=== PATIENT | male | born 1980 | race Caucasian/White ===

== ENCOUNTER 2019-03-16 11:53 | Emergency (ER) | payer MEDICARE, MEDICAID ==
[~2019-03-16] VITALS: Ht 170.2 cm; Wt 69.5 kg
[~2019-03-16 11:53] MED LIST: CIPR-230 PO
[2019-03-16 12:15] VITALS: BP 112/60
[2019-03-16] MEDS ORDERED: LIDOcaine 1% w/epiNEPHrine 1:200,000 30ml vial IM ONE (12:30)
--- NOTE | 2019-03-16 12:53 | NUR ---
LABELED AND SENT BLUE CULTURE OBTAINED BY RYAN CABALLERO FROM NECK ABSCESS, AUXILARY BROUGHT DOWN TO LAB.
[2019-03-16] MEDS ORDERED: ALBU8.5H8 IH (12:54)
[2019-03-16] MEDS ORDERED: SULF1TAB49 PO (12:54)
== END 2019-03-16 13:06 | disposition home or self-care (01) ==
LOC: ER 11:53
DX: L02.11 Cutaneous abscess of neck (principal); J45.909 Unspecified asthma, uncomplicated; F12.90 Cannabis use, unspecified, uncomplicated; Z98.890 Other specified postprocedural states; Z56.0 Unemployment, unspecified; Z79.2 Long term (current) use of antibiotics
CPT/HCPCS: 10060; 87070; 99283; J3490; 87077; 87186

== ENCOUNTER 2022-05-31 09:21 | Emergency (ER) | payer MEDICARE, MEDICAID ==
[~2022-05-31] VITALS: Ht 170.2 cm; Wt 71.8 kg
[~2022-05-31 09:21] MED LIST changes: +ALBU8.5H17 IH; +CIPR-202 PO; -CIPR-230 PO
[2022-05-31 10:01] LABS: BASOPHILS % (AUTO) 0.4 % (0-1); EOSINOPHILS # (AUTO) 0.1 X10'3 (0-0.9); EOSINOPHILS % (AUTO) 1.2 % (0-6); HEMATOCRIT 40.4 % (42.0-52.0); HEMOGLOBIN 13.7 g/dl (14.0-17.9); LYMPHOCYTES # (AUTO) 1.7 X10'3 (1.1-4.8); LYMPHOCYTES % (AUTO) 20.3 % (21-51); MEAN CORPUSCULAR HEMOGLOBIN 29.3 PG (27.0-31.0); MEAN CORPUSCULAR HGB CONC 33.8 g/dL (33.0-36.5); MEAN CORPUSCULAR VOLUME 86.7 FL (78-98); MEAN PLATELET VOLUME 7.3 FL (7.4-10.4); MONOCYTES # (AUTO) 0.4 X10'3 (0-0.9); MONOCYTES % (AUTO) 4.7 % (2-12); NEUTROPHILS % (AUTO) 73.4 % (42-75); PLATELET COUNT 280 X10'3 (140-440); RED BLOOD COUNT 4.66 X10'6 (4.70-6.10); WHITE BLOOD COUNT 8.1 X10'3 (4.5-11.0)
[2022-05-31 10:24] VITALS: BP 91/62
[2022-05-31 10:31] LABS: ALANINE AMINOTRANSFERASE 30 U/L (12-78); ALBUMIN 3.8 G/DL (3.4-5.0); ALBUMIN/GLOBULIN RATIO 1.1 (1.1-1.5); ALKALINE PHOSPHATASE 53 IU/L (46-116); ANION GAP 13 (8-16); ASPARTATE AMINO TRANSFERASE 23 U/L (10-37); BILIRUBIN,TOTAL 0.8 MG/DL (0.1-1.0); BLOOD UREA NITROGEN 12 MG/DL (7-18); BUN/CREATININE RATIO 12.8 (5.4-32.0); CALCIUM 8.8 MG/DL (8.5-10.1); CHLORIDE 102 MMOL/L (99-107); CREATININE 0.94 MG/DL (0.60-1.10); GLUCOSE 131 MG/DL (70-104); POTASSIUM 3.4 MMOL/L (3.5-5.1); SODIUM 137 MMOL/L (135-145); TOTAL CARBON DIOXIDE 22.3 MMOL/L (24-32); TOTAL PROTEIN 7.4 G/DL (6.4-8.2); eGFR 88 ML/MIN
[2022-05-31] MEDS ORDERED: ketorolac trometh inj. 60 MG/2 ML VIAL IM ONE (10:45)
[2022-05-31] MEDS ORDERED: potassium Cl 20 mEq SR tablet PO ONE (10:45)
== END 2022-05-31 11:11 | disposition home or self-care (01) ==
LOC: ER 09:22
DX: R07.89 Other chest pain (principal); J45.909 Unspecified asthma, uncomplicated; F12.90 Cannabis use, unspecified, uncomplicated; Z56.0 Unemployment, unspecified
CPT/HCPCS: 36415; 71045; 80053; 84484; 85025; 93005; 96372; 99285; J1885

== ENCOUNTER 2023-05-29 03:18 | Emergency (ER) | payer MEDICAID, MEDICARE ==
[~2023-05-29] VITALS: Ht 175.3 cm; Wt 68.0 kg
[2023-05-29 03:35] VITALS: TEMP 98.4
[2023-05-29] MEDS ORDERED: normal saline 1000ML IV soln IVB STA (04:12)
[2023-05-29] MEDS ORDERED: methylPREDNISolone sod succ 125mg/2ml vial IV ONE (04:15)
[2023-05-29] MEDS ORDERED: triamcinolone acetonide 40mg/ml inj IM ONE (04:15)
[2023-05-29] MEDS ORDERED: diphenhydrAMINE 50 mg/ml inj IV ONE (04:15)
[2023-05-29] MEDS ORDERED: famotidine/PF 10 mg/ml inj IV ONE (04:15)
[2023-05-29] MEDS ORDERED: EPIN0.3P3 IM (06:00)
[2023-05-29] MEDS ORDERED: normal saline 1000ml 1,000 ML IV ONE (06:05)
[2023-05-29 09:24] VITALS: BP 103/60; PULSE 82; RESP 16; O2SAT 98
== END 2023-05-29 09:28 | disposition home or self-care (01) ==
LOC: ER 03:19
DX: L50.0 Allergic urticaria (principal); J44.9 Chronic obstructive pulmonary disease, unspecified; F17.200 Nicotine dependence, unspecified, uncomplicated; F12.90 Cannabis use, unspecified, uncomplicated; Z79.2 Long term (current) use of antibiotics; Z79.899 Other long term (current) drug therapy
CPT/HCPCS: 96361; 96372; 96374; 96375; 99285; J1200; J2930; J3301; J3490; J7030

== ENCOUNTER 2025-05-12 08:25 | Emergency (ER) | payer MEDICAID ==
[~2025-05-12] VITALS: Ht 170.2 cm; Wt 69.8 kg
[~2025-05-12 08:25] MED LIST changes: +EPIN0.3P3 IM
[2025-05-12 08:28] VITALS: TEMP 97.9
--- NOTE | 2025-05-12 09:00 | Physician Documentation ---
History of Present Illness ~ Chief Complaint: Allergic Reaction Stated Complaint: ALLERGIC REACTION Time Seen by MD: 08:40 Primary Medical Doctor: none HPI 44-year-old male presents to the ED with a complaint of an all over body rash including hives. He states he thinks maybe his animal contracted poison oak and caused him to have the rash. Denies any history of allergies to anything other than all Hom[place]. Denies any shortness of breath or throat swelling reports that the rash is itchy and nonpainful. Day of Onset: May 12, 2025 Medication Reconciliation Allergies: Uncoded Allergies: ALMONDS (Allergy, Unknown, 05/12/25) Scheduled Ciprofloxacin HCl (Ciprofloxacin HCl), 1 TAB PO BID, (Reported) Epinephrine (Epipen 2-Aidan), 1 SYR IM ONCE Scheduled PRN Albuterol Sulfate (Proair Hfa), 2 PUFFS IH Q4H PRN for SOB or wheezing Past Medical History Past Medical History: Asthma, Bronchitis, COPD, Anxiety Past Surgical History: orthopedic surgeries Alcohol Use: Abuse Drug Use: marijuana Lives In: Home Occupation: unemployed Review of Systems All Other Systems at this time: Reviewed and Negative ROS As stated above in the HPI, otherwise all systems are reviewed and negative. Physical Exam Vital Signs: Temperature: 97.9, Source: Temporal, Heart Rate: 107, Respiratory Rate: 18, BP: 106/77, Pulse Oximetry: 98, Weight: 69.800 Oxygen Flow Rate: 0 Physical Exam General: Alert, no apparent distress. HEENT: PERRL, EOMI, no injection, moist mucous membranes. Skin:: hives allover body Progress Results/Orders Results/Orders Orders - GERBER ANAYA NP Triamcinolone Acet 40mg/Ml Inj (Kenalog- (05/12/25 08:55) Vital Signs 05/12/25 08:28 Temp 97.9 Pulse 107 Resp 18 B/P (MAP) 106/77 Pulse Ox 98 O2 Flow Rate 0 Medical Decision Making Findings To treat patient for hives via corticosteroids and advised him to go see his primary care for an allergy test to determine what allergens causing symptoms. Differential Dx:Considerations: Include: Anaphylaxis, Angioedema, Bronchospasm, Contact dermatitis, Drug reaction, Hypotension, Latex allergy, Renal failure, Respiratory failure, Shock, Urticaria, Other Departure Impression: Primary Impression: Anaphylactoid reaction Additional Impression: Hives Discharge Instructions: Anaphylactic Reaction, Adult, [id number] Referrals: NO PRIMARY CARE PROVIDER (PCP) Signature Scribe Signature: nb Attestation: Scribed for Gerber Anaya Coal Trimmer Machine Operator by Gerber Paige NP . 05/12/25 08:59 GERBER ANAYA NP May 12, 2025 09:00
[2025-05-12] MEDS: triamcinolone acetonide 40mg/ml inj IM ONE (09:13)
[2025-05-12 10:14] VITALS: BP 109/74; PULSE 81; RESP 18; O2SAT 100
== END 2025-05-12 10:20 | disposition home or self-care (01) ==
LOC: ER 08:25
DX: T78.2XXA Anaphylactic shock, unspecified, initial encounter (principal); L23.7 Allergic contact dermatitis due to plants, except food; F41.9 Anxiety disorder, unspecified; J44.9 Chronic obstructive pulmonary disease, unspecified; F12.90 Cannabis use, unspecified, uncomplicated; F10.10 Alcohol abuse, uncomplicated; Z79.899 Other long term (current) drug therapy; Z56.0 Unemployment, unspecified; Y90.9 Presence of alcohol in blood, level not specified
CPT/HCPCS: 96372; 99284; J1200; J3301

== ENCOUNTER 2025-06-12 08:30 | Emergency (ER) | payer MEDICAID ==
[~2025-06-12] VITALS: Ht 170.2 cm; Wt 66.2 kg
[~2025-06-12 08:30] MED LIST changes: -CIPR-202 PO; +CIPR-458 PO
[2025-06-12 08:32] VITALS: TEMP 97.3
[2025-06-12 09:08] LABS: LEUKOCYTE ESTERASE ,URINE NEGATIVE (Neg); NITRITES, URINE NEGATIVE (Neg); OCCULT BLOOD,URINE NEGATIVE (Neg)
[2025-06-12 09:09] LABS: UA COLLECTION TYPE CLN CATCH MIDSTREAM
[2025-06-12] MEDS ORDERED: SULF1TAB45 PO (09:16)
[2025-06-12] MEDS ORDERED: CEPH-585 PO (09:16)
--- NOTE | 2025-06-12 09:21 | Physician Documentation ---
History of Present Illness ~ Chief Complaint: Arm Pain Stated Complaint: ABSCESS Time Seen by MD: 09:05 OK to notify your PCP?: Yes Primary Medical Doctor: none Source: patient Mode of Arrival: POV Exam Limitations: no limitations HPI 44-year-old male presents with abscess under right armpit that he reports he has had for the past week. He states that it has now spread and he is having some redness to his nose as well as some tenderness. Last week he had an abscess under his left armpit which he was able to open and drain in his been healing ever since. He has not taken any antibiotics prior to arrival. He does report having a fever at home. Medication Reconciliation Allergies: Uncoded Allergies: ALMONDS (Allergy, Unknown, 05/12/25) Scheduled Cephalexin*Monohydrate* (Keflex*), 1 CAP PO Q8H Ciprofloxacin HCl (Ciprofloxacin HCl), 1 TAB PO BID, (Reported) Epinephrine (Epipen 2-Aidan), 1 SYR IM ONCE Sulfamethoxazole/Trimethoprim (Septra Ds Tab), 1 TAB PO Q12H Scheduled PRN Albuterol Sulfate (Proair Hfa), 2 PUFFS IH Q4H PRN for SOB or wheezing Past Medical History Past Medical History: Asthma, Bronchitis, COPD, Anxiety Past Surgical History: orthopedic surgeries Alcohol Use: Abuse Drug Use: marijuana Lives In: Home Occupation: unemployed Review of Systems All Other Systems at this time: Reviewed and Negative Physical Exam Vital Signs: RN Vital Signs have been reviewed: Yes, Temperature: 97.3, Source: Temporal, Heart Rate: 88, Respiratory Rate: 15, BP: 108/75, Pulse Oximetry: 100, Weight: 66.250 Oxygen Flow Rate: 0 Pulse Oximetry Reflects: adequate oxygenation Physical Exam General: Alert, no distress. HEENT: No injection, moist mucous membranes. Neck: Full range of motion. Respiratory: No respiratory distress, equal chest rise and fall. Chest: No accessory muscle use. Cardiovascular: Regular rate and rhythm. Gastrointestinal: Nondistended. Extremities: Normal range of motion, no deformity. Neurologic: Oriented x4. Psychiatric: Normal mood and affect. Skin: Abscess with erythema, tenderness and fluctuant tissue under right armpit. Hard tender lymph node under left armpit. Erythema, warmth and tenderness to nose. Procedures I&D Procedure : Site: Right armpit Anesthesia: Lidocaine w/ Epi Volume Anesthetic (mls): 2 Blade Size: 11 Prep/Supplies: betadine prep, drapes applied Incision: pus drained, blood drained Tolerated Procedure Well?: yes, no complications Progress Results/Orders Reviewed/noted all lab results: Yes Results/Orders Orders - MIKALA DOTSON Laceration/I&D Tray Set Up (06/12/25 ) Completed Orders - MIKALA DOTSON SOCKET WELDER HELPER Lidocaine 1% W/Epi 1:100,000 (Xylocaine (06/12/25 09:15) Cephalexin Capsule (Keflex Capsule) (06/12/25 09:15) Sulfamethox/Trimetho. Ds Tab (Septra Ds (06/12/25 09:15) Medications Received in ER Medications (Trade) Dose Ordered Sig/Yazan Route PRN Reason Start Time Stop Time Status Last Admin Dose Admin (Keflex capsule) 500 mg ONCE ONCE PO 06/12/25 09:15 06/12/25 09:20 DC 06/12/25 09:24 500 MG (Septra DS tab) 1 tab ONCE ONCE PO 06/12/25 09:15 06/12/25 09:20 DC 06/12/25 09:24 1 TAB Vital Signs 06/12/25 06/12/25 08:32 09:08 Temp 97.3 Pulse 89 88 Resp 16 15 B/P (MAP) 110/74 108/75 (86) Pulse Ox 99 100 O2 Flow Rate 0 Laboratory Tests Test 06/12/25 08:10 Urine Specimen Description Cln catch midstream Urine Color Yellow Urine Clarity Clear Urine pH 5.5 Urine Specific [place] 1.025 Urine Protein Negative Urine Glucose (UA) Negative Urine Ketones Trace H Urine Occult Blood Negative Urine Nitrite Negative Urine Bilirubin Negative Urine Urobilinogen 0.2 Urine Leukocyte Esterase Negative Urine Culture Indicated Not ind Volume Urine Centrifuged 10 ml Urine Comment Medical Decision Making Additional info obtained from: old records Findings 44-year-old male with abscess under his right arm which I did incision and drainage on and got some purulent discharge and blood. I placed him on Keflex as well as Septra since he has a healing abscess under his left armpit, has the current abscess under his right armpit as well as has some pain redness and warmth to the top of his nose which appears to be cellulitis. He states he has not had any abscesses under his armpits in the past or his groin. He states that he does not have a history of MRSA but he has had nasal infections which drained a pus-like discharge in the past so this makes me suspicious for possible MRSA that was not properly identified so the antibiotics should cover if that is the case. We went over wound care instructions as well as I gave him the 1st dose of antibiotics while here in the department. Differential Dx:Considerations: Include: Erysipelas, Gangrene (sepsis), Hidradenitis suppurativa, Impetigo, Osteomyelitis Departure Disposition: HOME / SELF CARE / HOMELESS Impression: Primary Impression: Abscess of axilla, right Additional Impression: Cellulitis of nose, external Condition: Stable Discharge Instructions: Abscess, Care After Additional Instructions: Please take all antibiotics as prescribed. You can take Tylenol or ibuprofen for pain relief at home. Please keep wound clean and dry and allow drainage from abscess. Follow up with your primary care provider within the next 3 days and return back here for any new or worsening symptoms. Referrals: NO PRIMARY CARE PROVIDER (PCP) Prescriptions Sulfamethoxazole/Trimethoprim (Septra Ds Tab) 800 Mg/160 Mg Tablet 1 TAB PO Q12H for 10 Days, #20 TAB Prov: MIKALA DOTSON 06/12/25 Cephalexin*Monohydrate* (Keflex*) 500 Mg Capsule 1 CAP PO Q8H for 10 Days, #30 CAP Prov: MIKALA DOTSON 06/12/25 Education Educated: Patient Educated regarding: diagnosis, treatment, prognosis, need for follow up Additional Comment Medical Screen Exam This patient recieved a medical screening examination. After reviewing the individual's medical complaints with presenting symptoms and performing an appropriate physical examination, it was determined that no immediate life- threatening emergency medical condition is present. This individual is also not a women having contractions. Signature Scribe Signature: . Attestation: Scribed for Mikala Dotson by Mikala Paige NP . 06/12/25 10:22 Parts of this note were created using [employer] voice recognition software program. While efforts were made to correct any mistakes made by this voice recognition software program, nonsensical phrases may remain in this note. In addition, there may be errors and syntax, grammar, content and spelling. MIKALA DOTSON [facility] Jun 12, 2025 09:21
[2025-06-12] MEDS: LIDOcaine 1% W/epiNEPHrine 1:100,000 20ml vial SQ ONE (09:23)
[2025-06-12] MEDS: sulfamethoxazole/trimethoprim DS (800/160mg) tablet PO ONE (09:24)
[2025-06-12 10:26] VITALS: BP 115/57; PULSE 82; RESP 15; O2SAT 99
== END 2025-06-12 10:29 | disposition home or self-care (01) ==
LOC: ER 08:31
DX: L02.411 Cutaneous abscess of right axilla (principal); J34.0 Abscess, furuncle and carbuncle of nose
CPT/HCPCS: 10060; 81003; 87070; 87077; 87186; 99284; A6449

== ENCOUNTER 2025-07-17 02:18 | Emergency (ER) | payer MEDICAID ==
[~2025-07-17] VITALS: Ht 170.2 cm; Wt 70.0 kg
[2025-07-17 02:25] VITALS: BP 113/71; PULSE 80; RESP 16; TEMP 98.4; O2SAT 96
--- NOTE | 2025-07-17 03:11 | Physician Documentation ---
History of Present Illness General Chief Complaint: Abscess Stated Complaint: ARMPIT ABCESS Time Seen by MD: 03:11 Primary Medical Doctor: none History of Present Illness Initial Comments Patient is a 44-year-old male complains of an abscess to his right axilla. Patient states he has had the abscesses drained in the past. Patient states he has had these swelling and pain for last several days. Patient denies any fevers or chills or discharge from the abscess region. Patient is requesting antibiotics he does not want not want to have his abscess drained in the emergency department. Patient's symptoms are mild and persistent. Medication Reconciliation Allergies: Uncoded Allergies: ALMONDS (Allergy, Unknown, 05/12/25) Scheduled Ciprofloxacin HCl (Ciprofloxacin HCl), 1 TAB PO BID, (Reported) Epinephrine (Epipen 2-Aidan), 1 SYR IM ONCE Sulfamethoxazole/Trimethoprim (Septra Ds Tab), 1 TAB PO BID Scheduled PRN Albuterol Sulfate (Proair Hfa), 2 PUFFS IH Q4H PRN for SOB or wheezing Past Medical History Past Medical History: Asthma, Bronchitis, COPD, Anxiety Past Surgical History: orthopedic surgeries Smoking: Cigarettes Alcohol Use: Abuse Drug Use: marijuana Lives In: Home Occupation: unemployed Review of Systems All Other Systems at this time: Reviewed and Negative Physical Exam Physical Exam Vital Signs: Temperature: 98.4, Heart Rate: 80, Respiratory Rate: 16, BP: 113/71, Pulse Oximetry: 96, Weight: 70.000 Oxygen Flow Rate: 0 Physical Exam VITALS: Reviewed and as above. GENERAL: Alert, no apparent distress. HEENT: Normocephalic, atraumatic, PERRL, EOMI, dry mucosa, no erythema BACK: No CVA tenderness, or swelling MUSCULOSKELETAL: No deformities, no edema SKIN: Warm and dry, patient has a 2 cm area of induration and erythema of the right axilla very slight fluctuance NEURO: Oriented x4, No motor or sensory deficit PSYCH: Normal mood and affect, no agitation Progress Results/Orders Results/Orders Completed Orders - ABBIE LANG MD Sulfamethox/Trimetho. Ds Tab (Septra Ds (07/17/25 03:25) Vital Signs 07/17/25 02:25 Temp 98.4 Pulse 80 Resp 16 B/P (MAP) 113/71 Pulse Ox 96 O2 Flow Rate 0 Medical Decision Making Findings Patient with a small abscess to his axilla, patient was offered incision and drainage, the patient is a electing for antibiotics only at this time. The patient is otherwise nontoxic and well-appearing. The patient will be discharged on Bactrim. Prior hospitalizations have been reviewed. The patient's pulse oximetry was interpreted as normal and adequate. Departure Disposition: HOME / SELF CARE / HOMELESS Impression: Primary Impression: Abscess of axilla, right Discharge Instructions: Skin Abscess, [id number] Referrals: NO PRIMARY CARE PROVIDER (PCP) Prescriptions Sulfamethoxazole/Trimethoprim (Septra Ds Tab) 800 Mg/160 Mg Tablet 1 TAB PO BID, #28 TAB Prov: ABBIE LANG MD 07/17/25 Signature Scribe Signature: The note accurately reflects work and decisions made by me.Abbie Lang MD 07/20/25 15:45 Attestation: The note accurately reflects work and decisions made by me.Abbie Lang MD 07/20/25 15:45 ABBIE LANG MD Jul 17, 2025 03:11
[2025-07-17] MEDS ORDERED: SULF1TAB45 PO (03:25)
[2025-07-17] MEDS: sulfamethoxazole/trimethoprim DS (800/160mg) tablet PO ONE (03:40)
== END 2025-07-17 03:43 | disposition home or self-care (01) ==
LOC: ER 02:20
DX: L02.411 Cutaneous abscess of right axilla (principal); J44.9 Chronic obstructive pulmonary disease, unspecified; F41.9 Anxiety disorder, unspecified; F12.90 Cannabis use, unspecified, uncomplicated; F10.90 Alcohol use, unspecified, uncomplicated; F17.210 Nicotine dependence, cigarettes, uncomplicated; Y90.9 Presence of alcohol in blood, level not specified
CPT/HCPCS: 99283

== ENCOUNTER 2025-07-23 08:47 | Emergency (ER) | payer MEDICAID ==
[~2025-07-23] VITALS: Ht 170.2 cm; Wt 70.5 kg
[~2025-07-23 08:47] MED LIST changes: +SULF1TAB45 PO
[2025-07-23 08:49] VITALS: BP 112/69; PULSE 91; RESP 16; O2SAT 98
[2025-07-23] MEDS ORDERED: CEPH-585 PO (10:19)
[2025-07-23] MEDS ORDERED: NAPR-56 PO (10:19)
--- NOTE | 2025-07-23 10:25 | Physician Documentation ---
History of Present Illness ~ Chief Complaint: Abscess Stated Complaint: ABSCESS Time Seen by MD: 09:13 Primary Medical Doctor: none Source: patient Mode of Arrival: POV Exam Limitations: no limitations [place] Bed Addressed? Mr. Granda is a 44 y/o male with history of recurrent abscesses to the right axilla who presents today with a recurrent abscess to the area. He was seen here earlier this month for the same. He was started on Bactrim which he states he has been taking as prescribed but the asbcess has been persistent. No fever/chills. + occasional purulent drainage. He has had this I and D'd previously. Pain is made worse with moving his right arm. Tetanus Within 5 Years: Yes Medication Reconciliation Allergies: Uncoded Allergies: ALMONDS (Allergy, Unknown, 05/12/25) Scheduled Ciprofloxacin HCl (Ciprofloxacin HCl), 1 TAB PO BID, (Reported) Epinephrine (Epipen 2-Aidan), 1 SYR IM ONCE Sulfamethoxazole/Trimethoprim (Septra Ds Tab), 1 TAB PO BID Scheduled PRN Albuterol Sulfate (Proair Hfa), 2 PUFFS IH Q4H PRN for SOB or wheezing Past Medical History Past Medical History: Asthma, Bronchitis, COPD, Anxiety Past Surgical History: orthopedic surgeries Alcohol Use: Abuse Drug Use: marijuana Lives In: Home Occupation: unemployed Review of Systems ROS ROS negative unless otherwise stated in HPI. Physical Exam Vital Signs: RN Vital Signs have been reviewed: Yes, Temperature: 97.2, Source: Temporal, Heart Rate: 91, Respiratory Rate: 16, BP: 112/69, Pulse Oximetry: 98, Weight: 70.450 Oxygen Flow Rate: 0 Physical Exam VITALS: Reviewed and as above. GENERAL: Alert, no apparent distress. HEENT: Normocephalic, atraumatic, PERRL, EOMI, dry mucosa, no erythema AXILLA: Small abscess to right axilla. No significant cellulitis noted. No obvious drainage noted. + TTP. RESPIRATORY: Lungs clear, normal breath sounds, no respiratory distress. CHEST: No accessory muscle use, no retractions CV: Regular rate, rhythm, no edema, no murmur, No: JVD GI: Soft, tenderness to the lower abdomen with palpation., bowels sounds present, no rebound, guarding, or rigidity BACK: No CVA tenderness, or swelling MUSCULOSKELETAL No deformities, no edema SKIN: Warm and dry, no rash NEURO: Oriented x4, No motor or sensory deficit PSYCH: Normal mood and affect, no agitation Progress Results/Orders Results/Orders Vital Signs 07/23/25 08:49 Temp 97.2 Pulse 91 Resp 16 B/P (MAP) 112/69 Pulse Ox 98 O2 Flow Rate 0 Medical Decision Making Differential Dx:Considerations: Include: Abscess, Cellulitis, Erysipelas, Lymphangitis, Osteromyelitis, Septicemia Additional Comment While here in the ED, he remained hemodynamically normal with ABC's intact and in NAD. He is afebrile and nontoxic. When seen here previously, he was started on Bactrim and has been taking it as prescribed. I will add Keflex for broader coverage. I do not feel this is a malignancy as he has had this several times and it resolves and then returns and he reports occasional purulent drainage from the wound. He was given follow-up and return instructions. He voiced understanding and agreement with d/c instructions. Departure Disposition: 01 HOME / SELF CARE / HOMELESS Impression: Primary Impression: Abscess Condition: Stable Discharge Instructions: Abscess, Care After Referrals: NO PRIMARY CARE PROVIDER (PCP) Prescriptions Cephalexin*Monohydrate* (Keflex*) 500 Mg Capsule 1 CAP PO Q6H for 7 Days, #28 CAP Prov: BHASKAR VALLE MD 07/23/25 Naproxen (Naproxen) 500 Mg Tablet 1 TAB PO Q12H PRN for pain for 10 Days, #20 TAB Prov: BHASKAR VALLE MD 07/23/25 Comments Take medications as prescribed. Please follow-up with your family physician within 24-48 hours and return to the Emergency Department if there are any additional concerns. Education Educated: Patient Educated regarding: diagnosis, treatment Signature Scribe Signature: N/A Attestation: N/A BHASKAR VALLE MD Jul 23, 2025 10:25
[2025-07-23 10:31] VITALS: TEMP 97.2
== END 2025-07-23 10:36 | disposition home or self-care (01) ==
LOC: ER 08:48
DX: L02.411 Cutaneous abscess of right axilla (principal); F10.10 Alcohol abuse, uncomplicated; F12.90 Cannabis use, unspecified, uncomplicated; J44.9 Chronic obstructive pulmonary disease, unspecified; F41.9 Anxiety disorder, unspecified; Z98.890 Other specified postprocedural states; Z56.0 Unemployment, unspecified; Z79.899 Other long term (current) drug therapy; Y90.9 Presence of alcohol in blood, level not specified
CPT/HCPCS: 99283